=== PATIENT | female | born 2000 | race Two or more races ===

== ENCOUNTER 2019-05-26 18:41 | Emergency (ER) | payer MEDICAID ==
[~2019-05-26] VITALS: Ht 162.6 cm; Wt 64.0 kg
[2019-05-26] MEDS ORDERED: KETOROLAC 30MG/ML VIAL IM ONE (19:15)
[2019-05-26 20:28] VITALS: BP 126/60
== END 2019-05-26 20:31 | disposition home or self-care (01) ==
LOC: ER 18:41
DX: S80.02XA Contusion of left knee, initial encounter (principal); V29.9XXA Motorcycle rider (driver) (passenger) injured in unspecified traffic accident, initial encounter; Y93.89 Activity, other specified; Y92.410 Unspecified street and highway as the place of occurrence of the external cause
CPT/HCPCS: 73562; 73590; 81025; 96372; 99284; J1885